=== PATIENT | female | born 1970 | race Caucasian/White ===

== ENCOUNTER 2016-06-19 14:05 | Emergency (ER) | payer MEDICAID ==
[~2016-06-19 14:05] MED LIST: ADVAIR 25028 BLISTER INH; ALBUTEROL17 GM INH; GABAPENTIN PO; LEVAQUIN; LEVOTHYROXIN PO; NORCO 5/325 TAB1 TAB PO; PREDNISONE10 MG PO; PULMICORT; THERA PO
[2016-06-19] MEDS ORDERED: ADVAIR 25028 BLISTE1 PO (14:56)
[2016-06-19] MEDS ORDERED: FLAGYL500 M1 PO (14:56)
[2016-06-19] MEDS ORDERED: PROAIR HFA8.5 GM INH (14:56)
[2016-06-19] MEDS ORDERED: PREDNISONE20 M1 PO (14:56)
== END 2016-06-19 15:40 ==
LOC: EDMED 14:05
DX: J45.901 Unspecified asthma with (acute) exacerbation (principal); Z79.51 Long term (current) use of inhaled steroids
CPT/HCPCS: J7512